=== PATIENT | male | born 1945 | race Caucasian/White ===

== ENCOUNTER 2023-06-09 11:41 | Inpatient (IN) ==
[2023-06-09] MEDS ORDERED: OPTIRAY 320 500ml IV ONE (13:02)
[2023-06-09 13:16] LABS: Basophils # (auto) 0.06 K/uL (0.00-0.20); Basophils % (auto) 0.9 %; Eosinophils # (auto) 0.02 K/uL (0.00-0.50); Eosinophils % (auto) 0.3 %; Hematocrit (blood only) 34.5 % (42.0-52.0); Hemoglobin 11.6 g/dl (14.0-18.0); Immature Granulocytes # (auto) 0.04 K/uL (0.01-0.20); Immature Granulocytes % (auto) 0.6 %; Lymphocytes # (auto) 0.36 K/uL (1.20-3.40); Lymphocytes % (auto) 5.1 %; Mean Corpuscular Hemoglobin 31.1 pg (25.0-34.0); Mean Corpuscular Hgb Conc 33.6 g/dL (32.0-36.0); Mean Corpuscular Volume 92.5 fL (80.0-100.0); Mean Platelet Volume 8.3 fL (9.4-12.4); Monocytes # (auto) 0.71 K/uL (0.11-0.59); Monocytes % (auto) 10.1 %; Neutrophils # (auto) 5.81 K/uL (1.40-6.50); Platelet Count 338 K/uL (130-400); RDW Coefficient of Variation 12.9 % (11.5-14.5); RDW Standard Deviation 43.4 fL (36.4-46.3); Red Blood Count 3.73 M/uL (4.70-6.10)
[2023-06-09 13:21] LABS: Alanine Aminotransferase 18 U/L (7-52); Albumin Level 3.4 gm/dl (3.4-5.0); Alkaline Phosphatase 129 U/L (34-104); Anion Gap 7 (3-11); Aspartate Aminotransferase 13 U/L (13-39); BUN Creatinine Ratio 22.6 (10-20); Bilirubin Direct 0.3 mg/dl (0-0.2); Bilirubin,Total 1.1 mg/dl (0.2-1.0); Blood Urea Nitrogen 12 mg/dl (6-23); Calcium 8.7 mg/dl (8.6-10.3); Carbon Dioxide 26 mmol/L (21-32); Chloride 97 mmol/L (98-107); Est GFR (African American) 118.3 ml/min; Est GFR (Non-African American) 102.1 ml/min; Glucose 122 mg/dl (70-99(Fasting)); Lipase 8 U/L (11-82); Potassium 3.5 mmol/L (3.5-5.1); Sodium 130 mmol/L (136-145)
[2023-06-09 13:28] LABS: INR 1.1 (0.9-1.1); Partial Thromboplastin Ratio 0.8; Partial Thromboplastin Time 23 Seconds (21-31); Prothrombin Time 12.4 Seconds (9.0-12.0)
--- NOTE | 2023-06-09 13:42 | CT Scan Report ---
CT SCAN OF THE ABDOMEN AND PELVIS WITH IV CONTRAST CLINICAL HISTORY: Left inguinal hernia. COMPARISON STUDY: No priors. TECHNIQUE: Following the IV administration of 88 cc of Optiray 320, CT scan of the abdomen and pelvi s is performed from the lung bases to the proximal femora. Images are reviewed in the axial, sagittal , and coronal planes. IV contrast was administered without complication. A dose lowering technique wa s utilized adhering to the principles of ALARA. CT DOSE: 945.17 mGy.cm FINDINGS: Lung bases: The heart is enlarged noting a small pericardial effusion. The coronary arteries are dens [place] calcified. There are small pleural effusions with dependent consolidation. Intralobular septal th ickening at both lung bases could represent acute versus chronic congestive change. Liver: The contrast-enhanced liver is cirrhotic in morphology and heterogeneous in attenuation. There is hypertrophy of the left lobe and nodularity of the hepatic surface contour. There is no intrahepa tic biliary ductal dilatation. The hepatic veins and portal veins are patent. There is a 9 mm right l obe cyst. Gallbladder: There is nonspecific gallbladder wall thickening and edema without clear CT evidence of acute cholecystitis. Spleen: Normal in size and attenuation. Pancreas: The pancreas is mildly atrophic and heterogeneous. Extensive parenchymal calcifications ind icate chronic pancreatitis. The pancreatic duct is significantly dilated, measuring up to [address] This is likely related to intraductal calculi near the ampulla. Adrenal glands: There is nonspecific thickening of the adrenal glands. Kidneys: The contrast enhanced kidneys are normal in size and without hydronephrosis. The kidneys enh ance symmetrically. Scattered cysts measure up to 1.9 cm. Abdominal vasculature: The abdominal aorta is normal in course and caliber noting moderate atheroscle rotic calcification. Bowel: There is postsurgical change from rectosigmoid resection with colocolonic anastomosis. Moderat e to severe fecal retention is noted throughout the colon. A small bowel anastomosis is seen in the r ight midabdomen. There is focal dilatation and fecalization at the anastomotic site seen on image #[id number]. There is no evidence of bowel obstruction. The appendix is well-visualized and normal. Peritoneum: There is a small to moderate volume of abdominopelvic ascites. No intraperitoneal free ai r is identified. There is a fat-containing umbilical hernia. A defect in the right lower quadrant abd ominal wall is likely related to a prior ostomy site. Lymphadenopathy: None. Pelvic viscera: The prostate gland is enlarged and heterogeneous. The bladder wall is thickened/trabe culated indicating chronic outlet obstruction. There is a large left inguinal hernia. This contains a large thick walled and peripherally enhancing fluid collection. This measures approximately 13 x 5 x 5 cm as seen on axial image #350. Although loops of small bowel closely approximate this collection at the inguinal ring, incarcerated bowel loop is considered less likely. There is diffuse scrotal wal l thickening and edema as well as a left-sided hydrocele. Skeletal structures: The skeletal structures are osteopenic. Mild to moderate lumbosacral spondylosis is observed. No lytic or blastic lesions are seen. There are chronic/healed bilateral rib fractures. There is chronic deformity of the right transverse process of L3. IMPRESSION: 1. There is a large left inguinal hernia which contains a large, thick-walled, and peripherally enhan cing fluid collection. Although loops of small bowel closely approximates this collection at the ingu inal ring, this does not appear to represent an incarcerated bowel loop and there is no evidence of u pstream bowel obstruction. An infected fluid collection/abscess is favored. A rind of neoplasm/metast atic disease within the inguinal canal is a differential consideration. An incarcerated bowel loop is considered much less likely but not entirely excluded. Surgical assessment is advised. 2. There is postsurgical change from rectosigmoid resection. No bowel obstruction is seen. Focal dila tation and fecalization at a small bowel anastomosis in the right mid abdomen is likely related to de nervation. 3. [id number] volume of abdominopelvic ascites. 4. The liver is cirrhotic in morphology and heterogeneous in attenuation. 5. There is evidence of chronic pancreatitis. The pancreatic duct is significantly dilated measuring up to 11 mm, and this is likely related to intraductal calculi at the ampulla. There is no CT evidenc e of obstructing mass lesion. GI follow-up is recommended. 6. Cardiomegaly. Interlobular septal thickening at the lung bases could represent acute versus chroni c congestive change. Clinical correlation will be required. 7. Small pleural effusions with dependent consolidation. This likely represents atelectasis. Correlat e clinically. 8. There is nonspecific gallbladder wall thickening and edema, likely related to ascites and adjacent hepatocellular disease. There is no convincing CT evidence of acute cholecystitis. Correlate clinica lly. 9. Moderate to severe constipation. 10. There is scrotal wall thickening and edema as well as a left-sided hydrocele. No perineal soft ti ssue gas is seen. 11. Additional findings as above. ACT 112: Negative or not required by law. Electronically signed by: Tao Verdugo M.D. 06/09/2023 1:40 PM
--- NOTE | 2023-06-09 15:30 | Surgery Consultation ---
Date of Consultation June 09, 2023 Assessment & Plan (1) Left inguinal hernia: fluid filled collection in left groin likely post-op collection with surrounding erythema potential abscess WBC normal and no fevers recommended US guided drainage by IR will need inguinal hernia repair eventually so would not recommend operation in this area acutely, IR drainage preferable History of Present Illness History of Present Illness This is a 78-year-old male who has recently been on anticoagulation for intermittent A-fib. He presents with a left groin swelling with tenderness. This has been present for over a month. He was brought in by his son for evaluation. The pain he says is steady but has not worsened recently. He denies any bowel habit changes. He does have some difficulty urinating. He denies any fevers, chills, nausea, or vomiting. He had a CT in the ED which shows a fluid-filled collection in his left groin. This is associated with a left inguinal hernia also. He has a past surgical history significant for colon resection with a diverting ileostomy. The diverting ileostomy was taken down in April and the swelling in his groin started soon after that. Allergies Allergy/AdvReac Type Severity Reaction Status Date / Time No Known Allergies Allergy Unverified 06/09/23 15:05 Home Medications Medication Instructions Recorded Confirmed Type diltiazem HCl 120 mg 120 mg PO QAM 06/09/23 06/09/23 History tablet,extended release 24 hr Patient History Social History Smoking Status: Never smoker Preferred Language: Croatian Feels Safe at Home: Yes Review of Systems Constitutional: no fever, no chills and no anorexia Eyes: no problem reported Ear, Nose, Mouth, Throat: + problem reported (recent fall with a h ematoma of his left forehead) Respiratory: no cough and no dyspnea Cardiovascular: no chest pain Gastrointestinal: no abdominal pain, no nausea, no vomiting and no change in bowel habits Genitourinary: + difficulty urinating and + scrotal swe lling; no dysuria Musculoskeletal: no back pain Integumentary: + erythema (left groin); no problem repo rted Neurologic: no localized weakness and no generalized weakness Psychiatric: no behavioral changes Hematologic / Lymphatic: + easy bleeding and + easy bruising Physical Exam Constitutional: well developed and well nourished Eyes: PERRL, conjunctivae normal, anicteric sclerae ENMT: external ear and nose normal, oropharynx normal Neck: trachea midline Respiratory: normal respiratory effort, lungs clear to auscultation Cardiovascular: Rate/Rhythm: regular rate and regular rhythm Gastrointestinal (Abdomen): Inspection/Auscultation: abdomen normal to inspection, normal bowel sounds and + abdominal surgical scar; abdomen not distended Percussion/Palpation: abdomen soft; abdomen nontender, no guarding and abdomen not rigid Musculoskeletal: Head/Neck/Chest: + head abnormal to inspection (left forehead hematoma) and normocephalic Skin: no rashes, warm and dry Results & Data Vital Signs (Past 12 Hours) Vital Signs Temp Pulse Pulse Resp BP BP Pulse Ox 06/09/23 14:30 86 14 92 06/09/23 14:00 89 19 98 06/09/23 13:44 93 H 06/09/23 13:41 90 136/98 93 06/09/23 12:28 96 H 18 96 06/09/23 12:07 36.6 C 112 H 18 114/82 100 O2 Del Method 06/09/23 14:30 06/09/23 14:00 06/09/23 13:44 06/09/23 13:41 Room Air 06/09/23 12:28 Room Air 06/09/23 12:07 Room Air Diagnostic Findings CT SCAN OF THE ABDOMEN AND PELVIS WITH IV CONTRAST CLINICAL HISTORY: Left inguinal hernia. COMPARISON STUDY: No priors. TECHNIQUE: Following the IV administration of 88 cc of Optiray 320, CT scan of the abdomen and pelvis is performed from the lung bases to the proximal femora. Images are reviewed in the axial, sagittal, and coronal planes. IV contrast was administered without complication. A dose lowering technique was utilized adhering to the principles of ALARA. CT DOSE: 945.17 mGy.cm FINDINGS: Lung bases: The heart is enlarged noting a small pericardial effusion. The coronary arteries are densely calcified. There are small pleural effusions with dependent consolidation. Intralobular septal thickening at both lung bases could represent acute versus chronic congestive change. Liver: The contrast-enhanced liver is cirrhotic in morphology and heterogeneous in attenuation. There is hypertrophy of the left lobe and nodularity of the hepatic surface contour. There is no intrahepatic biliary ductal dilatation. The hepatic veins and portal veins are patent. There is a 9 mm right lobe cyst. Gallbladder: There is nonspecific gallbladder wall thickening and edema without clear CT evidence of acute cholecystitis. Spleen: Normal in size and attenuation. Pancreas: The pancreas is mildly atrophic and heterogeneous. Extensive parenchymal calcifications indicate chronic pancreatitis. The pancreatic duct is significantly dilated, measuring up to 11 mm diameter. This is likely related to intraductal calculi near the ampulla. Adrenal glands: There is nonspecific thickening of the adrenal glands. Kidneys: The contrast enhanced kidneys are normal in size and without hydronephrosis. The kidneys enhance symmetrically. Scattered cysts measure up to 1.9 cm. Abdominal vasculature: The abdominal aorta is normal in course and caliber noting moderate atherosclerotic calcification. Bowel: There is postsurgical change from rectosigmoid resection with colocolonic anastomosis. Moderate to severe fecal retention is noted throughout the colon. A small bowel anastomosis is seen in the right midabdomen. There is focal dilatation and fecalization at the anastomotic site seen on image #169. There is no evidence of bowel obstruction. The appendix is well-visualized and normal. Peritoneum: There is a small to moderate volume of abdominopelvic ascites. No intraperitoneal free air is identified. There is a fat-containing umbilical hernia. A defect in the right lower quadrant abdominal wall is likely related to a prior ostomy site. Lymphadenopathy: None. Pelvic viscera: The prostate gland is enlarged and heterogeneous. The bladder wall is thickened/trabeculated indicating chronic outlet obstruction. There is a large left inguinal hernia. This contains a large thick walled and peripherally enhancing fluid collection. This measures approximately 13 x 5 x 5 cm as seen on axial image #350. Although loops of small bowel closely approximate this collection at the inguinal ring, incarcerated bowel loop is considered less likely. There is diffuse scrotal wall thickening and edema as well as a left-sided hydrocele. Skeletal structures: The skeletal structures are osteopenic. Mild to moderate lumbosacral spondylosis is observed. No lytic or blastic lesions are seen. There are chronic/healed bilateral rib fractures. There is chronic deformity of the right transverse process of L3. IMPRESSION: 1. There is a large left inguinal hernia which contains a large, thick-walled, and peripherally enhancing fluid collection. Although loops of small bowel closely approximates this collection at the inguinal ring, this does not appear to represent an incarcerated bowel loop and there is no evidence of upstream bowel obstruction. An infected fluid collection/abscess is favored. A rind of neoplasm/metastatic disease within the inguinal canal is a differential consideration. An incarcerated bowel loop is considered much less likely but not entirely excluded. Surgical assessment is advised. 2. There is postsurgical change from rectosigmoid resection. No bowel obstruction is seen. Focal dilatation and fecalization at a small bowel anastomosis in the right mid abdomen is likely related to denervation. 3. [place]au[place] volume of abdominopelvic ascites. 4. The liver is cirrhotic in morphology and heterogeneous in attenuation. 5. There is evidence of chronic pancreatitis. The pancreatic duct is significantly dilated measuring up to 11 mm, and this is likely related to intraductal calculi at the ampulla. There is no CT evidence of obstructing mass lesion. GI follow-up is recommended. 6. Cardiomegaly. Interlobular septal thickening at the lung bases could represent acute versus chronic congestive change. Clinical correlation will be required. 7. Small pleural effusions with dependent consolidation. This likely represents atelectasis. Correlate clinically. 8. There is nonspecific gallbladder wall thickening and edema, likely related to ascites and adjacent hepatocellular disease. There is no convincing CT evidence of acute cholecystitis. Correlate clinically. 9. Moderate to severe constipation. 10. There is scrotal wall thickening and edema as well as a left-sided hydrocele. No perineal soft tissue gas is seen.
[2023-06-09] MEDS ORDERED: PIPERACILLIN/TAZOBACTAM 4.5 GM/120 ML BAG IV ONE (16:03)
--- NOTE | 2023-06-09 16:39 | History & Physical Report ---
Date of Service June 09, 2023 Assessment & Plan (1) Abscess of left groin: Plan: Abscess Left inguinal abscess suspicious for abscess CT shows collection at the inguinal ring but without suspected incarcerated bowel loop with no associated obstruction, infected fluid collection is favored. Surgery consulted. Recommend IR drainage, antibiotics and then nonemergent follow-up for hernia repair when stable. Not felt to represent incarcerated hernia. IR consulted, anticipate drainage on surgical cultures 2/2. Continue Zosyn Patient is nontoxic, (2) Chronic pancreatitis: Plan: Evidence of chronic pancreatitis Pancreatic ductal dilation suspected due to intraductal calculi. No evidence of obstructing mass noted on CT. No evidence of acute cholecystitis on CT however there is some nonspecific gallbladder wall thickening and edema suspect to be related to ascites and hepatocellular disease. No lipase elevation Clinically without pain. No leukocytosis. Bilirubin 0.3 no transaminitis. Lipase is 8, no acute elevated. No acute alan. GI consulted. (3) Left inguinal hernia: Plan: - Delay repair until abscess/infection is adequately treated and resolved (4) Afib: Plan: History of 1 cardioversion with subsequent return to A-fib after several months Was previously anticoagulated however this was stopped due to history of GI bleeding Patient is pending follow-up with [facility] cardiology for further care. Patient prefers to avoid medications and anticoagulation if possible Patient was previously on metoprolol for A-fib and had some leg swelling at the time before he was rate controlled. Denies any history of CHF/NM. He stopped this due to lightheadedness on these medications, this was prior to his cardioversion. After return to A-fib he was started on diltiazem but had significant leg swelling with this which immediately resolved when he stopped taking it. Will restart metoprolol low-dose at this time for rate control. He is in A-fib on admission with no ischemic changes. Echo ordered for history of A-fib with RVR and leg swelling, leg swelling has resolved at time of admission Anticoagulation held pending surgical management/IR drainage. He has a [id number] of at least 2 and while he had initial GI bleeding this was in the setting of a untreated colon cancer which has since resolved. Patient is with increased risk of bleeding Cardiology records pending from [facility] (he was seen at [facility] for cardiology, [facility] for his colon cancer) (5) History of colon cancer: Plan: Resected at [facility], no metastatic or residual disease and has not required chemo or radiation. Ileostomy was reversed at this past April Records pending from [facility] Plan DVT prophylaxis: SCDs Diet: N.p.o. Disposition: Medical telemetry given history of A-fib RVR not currently on rate control CODE STATUS: Full History of Present Illness Primary Care Provider: NO PCP Mal is a 78-year-old male with a history of A-fib on anticoagulation who presents with 1 month of left groin swelling and tenderness which has been unchanging in the last few days. CT shows fluid-filled left groin collection and associated left inguinal hernia. Patient has a history of colon resection and diverting ileostomy which was reversed in April, swelling started shortly after this. CTA/P: Large left inguinal hernia with large thick-walled peripherally enhancing fluid collection. Loops of bowel closely approximates this collection at the inguinal ring but this does not appear to represent incarcerated bowel and is not associated with an obstruction. Infected fluid collection/abscess favored neoplasm not excluded. Patient seen by general surgery. Suspect postop fluid collection potential abscess. Recommend ultrasound-guided drainage with interventional radiology, will need eventual inguinal hernia repair however recommend drainage and antibiotic treatment prior to pursuing this Mal is seen at the bedside and collateral is collected from his son Schuyler by andrew wilcox. Came in today due to groin swelling which began in April and is causing pain. Has had a chronic hernia in that area, but swelling increased 3 weeks ago and pain began to develop 3 weeks ago. Has been relatively constant until the past week/few days when it increased which prompted him to come into the ER In December he had a colon cancer rescection with ileostomy. Apr 22 had ileostomy reversed and was uncomplicated, but swelling did worsen shortly after that. Hernia preceded that and was known. Had delayed repair as was focusing on th emanagement of cancer. Surgeyr was performed at [facility] cardiology. Was cardioverted once two years ago / Apr 2022 but afib recurred after a few months. Had associated leg swelling. No history of NM. Was on eliquis but had a GIB/rectal bleed which led to the dx of his colon cancer. Was recommended to discontinue anticoagulation. Is pending followup for potential ablation/cardioversion and will be seeing Dr. Geronimo to establish here in the next few months. No PCP in [facility] because that PCP stopped practicing and never transferred care. Appointment on Tuesday to establish with [facility]/Dr. Ramirez office. During ileostomy reversal did have some RVR and hypertension which was noted and he was started on cardizem. Shortly after developed leg edema again which had not been present for over a year and had stopped taking this a few days ago and noticed that the swelling completely resolved after this was stopped. Son thinks Mal may have been on metoprolol over a year ago with lasix but had some dizziness and a fall when this was combined wtih lasix and discontinued this cold turkey. Son lives in [place]. Mal moved to [facility] with his son temporarily. Only current prescription is cardizem which he is not taking. Takes no medic ations and prefers to avoid medications. Takes multiple vitamins and supplements Medical History: Reviewed Medications: Reviewed Surgical History: Reviewed Family history: Reviewed Allergies: Reviewed Social History: Denies tobacco/etoh use Code Status: Full Code Allergies Allergy/AdvReac Type Severity Reaction Status Date / Time No Known Allergies Allergy Unverified 06/09/23 15:05 Home Medications Medication Instructions Recorded Confirmed Type diltiazem HCl 120 mg 120 mg PO QAM 06/09/23 06/09/23 History tablet,extended release 24 hr Past Med/Surg History Social History Smoking Status: Never smoker Preferred Language: Japanese Feels Safe at Home: Yes Physical Exam Physical Exam: General: A&Ox3. NAD. Cooperative. HEENT: Atraumatic, normocephalic. Vision/hearing intact Pulm: CTAB A&P. -wheezes, -rales, -rhonchi. Symmetrical chest rise. No increased work of breathing. No respiratory distress. Cardiac: irir, regular rate, -mrg. Radial pulses intact and symmetrical. Abdominal: Nontender, nondistended, soft. BS present. : Left inguinal swelling, tenderness, and overlying erythema. Extremities: Warm, dry. No pitting edema Results & Data Results & Data Vital Signs (Past 12 Hours) Vital Signs Temp Pulse Pulse Resp BP BP Pulse Ox 06/09/23 14:30 86 14 92 06/09/23 14:00 89 19 98 06/09/23 13:44 93 H 06/09/23 13:41 90 136/98 93 06/09/23 12:28 96 H 18 96 06/09/23 12:07 36.6 C 112 H 18 114/82 100 O2 Del Method 06/09/23 14:30 06/09/23 14:00 06/09/23 13:44 06/09/23 13:41 Room Air 06/09/23 12:28 Room Air 06/09/23 12:07 Room Air PG Care Time/CCT Total # of Minutes Spent Total Time Spent with Patient: Total time spent is greater than 50% in coordination of care (as documented) at patient's floor/unit and/or counseling patient: Coding Level of Care Code 67682 INT INP/OBS CARE 375MIN Diagnoses Abscess of left groin L02.214 Chronic pancreatitis K86.1 Left inguinal hernia K40.90 Afib I48.91 History of colon cancer Z85.038
[2023-06-09] MEDS ORDERED: ACETAMINOPHEN 325 MG TAB PO PRN (19:15)
[2023-06-09] MEDS ORDERED: Patient's HEIGHT &/or WEIGHT Needed SCH (19:30)
[2023-06-09] MEDS: METOPROLOL TARTRATE 25 MG TAB PO SCH (20:32)
[2023-06-09] MEDS: LACTATED RINGER'S 1,000 ML IV SCH (20:33)
--- NOTE | 2023-06-09 20:44 | Emergency Department Note ---
History of Present Illness General Chief complaint: Groin Pain Stated complaint: GROIN PAIN Time Seen by Provider: 06/09/23 12:15 Source: patient and family (Son at bedside) History of Present Illness Provider complaint: Left groin pain Maximum Pain Intensity: 8 78-year-old male presents emergency department with some for left groin pain. Patient's son reports that the patient has noted mass in his groin for the last 3 months that he describes as a bulge. He states is becoming painful over the last month. Son reports that patient is usually able to push back and but over the last 2 weeks he has not been able to push it back in. No fevers. Patient has a history of colon cancer and has a history of colectomy with ileostomy, ileostomy was reversed in [place] in April. Patient not on any blood thinners. Home Medications Medication Instructions Recorded Confirmed Type diltiazem HCl 120 mg 120 mg PO QAM 06/09/23 06/09/23 History tablet,extended release 24 hr Allergies Allergy/AdvReac Type Severity Reaction Status Date / Time No Known Allergies Allergy Unverified 06/09/23 15:05 Past Med/Surg History Medical History History of colon cancer Afib Surgical History H/O colectomy Social History Smoking Status: Never smoker Hx Alcohol Use: No Hx Substance Use: No Preferred Language: Lao Communication Ability: Effective Medical Dosimetrist Required: No Beliefs That Will Affect Care: None Current Living Situation: Alone Other Information That Helps Us Care for You: No Feels Safe at Home: Yes Safety Concerns: Feels Safe At This Time Assistive Devices: None Physical Exam Vital Signs Vital Signs - 24 hr 06/09/23 12:07 06/09/23 12:28 06/09/23 13:41 Temperature 36.6 C Temperature Source Temporal Artery Scan Pulse Rate 112 H 96 H Pulse Rate [Apical] 90 Pulse Rate from SpO2 Sensor Pulse Rhythm Regular Respiratory Rate 18 18 Respiratory Effort / Characteristics Non-Labored Spontaneous Respiratory Depth Normal Respiratory Pattern Regular Blood Pressure 114/82 Blood Pressure [Right Arm] 136/98 Blood Pressure Mean 92 Blood Pressure Mean [Right Arm] 110 Blood Pressure Position Sitting Pulse Oximetry 100 96 93 Oxygen Delivery Method Room Air Room Air Room Air Sepsis Recent Fever Within 48 Hours No Sepsis New/Unexplained Change in Mental Status N/A Sepsis Action Taken by Nursing No Action Required 06/09/23 13:44 06/09/23 14:00 06/09/23 14:30 Temperature Temperature Source Pulse Rate 93 H 89 86 Pulse Rate [Apical] Pulse Rate from SpO2 Sensor 94 H 94 H Pulse Rhythm Respiratory Rate 19 14 Respiratory Effort / Characteristics Respiratory Depth Respiratory Pattern Blood Pressure Blood Pressure [Right Arm] Blood Pressure Mean Blood Pressure Mean [Right Arm] Blood Pressure Position Pulse Oximetry 98 92 Oxygen Delivery Method Sepsis Recent Fever Within 48 Hours Sepsis New/Unexplained Change in Mental Status Sepsis Action Taken by Nursing 06/09/23 16:39 06/09/23 16:43 06/09/23 17:00 Temperature Temperature Source Pulse Rate 103 H 91 H Pulse Rate [Apical] Pulse Rate from SpO2 Sensor 99 H 84 Pulse Rhythm Respiratory Rate 22 19 Respiratory Effort / Characteristics Respiratory Depth Respiratory Pattern Blood Pressure 154/102 H Blood Pressure [Right Arm] Blood Pressure Mean 119 Blood Pressure Mean [Right Arm] Blood Pressure Position Pulse Oximetry 95 96 Oxygen Delivery Method Sepsis Recent Fever Within 48 Hours Sepsis New/Unexplained Change in Mental Status Sepsis Action Taken by Nursing Physical Exam GENERAL: oriented to person, place, and time. appears well-developed and well- nourished. HENT: Exam performed. - Head: Normocephalic and atraumatic. EYES: Conjunctivae and EOM are normal. Right eye exhibits no discharge. Left eye exhibits no discharge. No scleral icterus. NECK: Normal range of motion. Neck supple. No JVD present. CV: Normal rate, irregular rhythm, normal heart sounds and intact distal pulses. There is no peripheral edema. Palpable radial pulses bue. PULM/CHEST: Effort normal and breath sounds normal. No respiratory distress. No stridor. no wheezes. no rales. ABD: The abdomen is soft. There is a large mass in the patient's left inguinal area extending into his scrotum appears clinically as an inguinal hernia. There is no overlying erythema or redness no warmth. NEURO: Motor and sensation grossly intact. Course Course 1215: The patient was evaluated in room C6. A complete history and physical exam was performed Cardiac monitoring: An order was placed for continuous cardiac monitoring. The monitor shows a rate of 60 with afib rhythm interpreted by me 1358: Vital signs stable. Labs within normal limits. Imaging shows a fluid collection/abscess versus neoplasm/metastatic disease versus incarcerated bowel loop although the incarcerated bowel loop is considered less likely based radiology. Recommended general surgery consult. Spoke with Dr. Carvalho who states he will be down to evaluate the patient. 1525: Patient was evaluated Dr. Carvalho. He states he does not think the patient has incarcerated hernia does not recommend an operative procedure at this time. He recommends consulting IR for drainage and start broad-spectrum antibiotics and admission to the hospital seen. 1548: Spoke with Mookie Graves interventional radiology he states he can assess the patient for drainage tomorrow and agrees to be on consult with admission to medicine. [facility] Administered Medications Discontinued Medications Piperacillin Sod/Tazobactam Sod (Zosyn) 4.5 gm in 120 mls @ 240 mls/hr IV NOW ONE Stop: 06/09/23 16:32 Last Infusion: 06/09/23 17:18 Dose: Infused Documented By: Admin: 06/09/23 16:41 Dose: 240 mls/hr Documented By: KAYLEEN Ioversol (Optiray 320 500ml) 86 ml IV ONCE ONE Stop: 06/09/23 13:03 Last Admin: 06/09/23 13:02 Dose: 86 ml Documented By: CHRISTINA Medical Decision Making Laboratory Data Attestation: I reviewed the patient's lab results. 06/09/23 12:30 06/09/23 12:30 Lab Results 06/09/23 Range/Units 12:30 WBC 7.00 (4.8-10.8) K/ul RBC 3.73 L (4.70-6.10) M/uL Hgb 11.6 L (14.0-18.0) g/dl Hct 34.5 L (42.0-52.0) % MCV 92.5 (80.0-100.0) fL MCH 31.1 (25.0-34.0) pg MCHC 33.6 (32.0-36.0) g/dL RDW Std Deviation 43.4 (36.4-46.3) fL RDW Coeff of Chacho 12.9 (11.5-14.5) % Plt Count 338 (130-400) K/uL MPV 8.3 L (9.4-12.4) fL Immature Gran % (Auto) 0.6 % Neut % (Auto) 83.0 % Lymph % (Auto) 5.1 % Gove % (Auto) 10.1 % Eos % (Auto) 0.3 % Baso % (Auto) 0.9 % Neut # (Auto) 5.81 (1.40-6.50) K/uL Lymph # (Auto) 0.36 L (1.20-3.40) K/uL Gove # (Auto) 0.71 H (0.11-0.59) K/uL Eos # (Auto) 0.02 (0.00-0.50) K/uL Baso # (Auto) 0.06 (0.00-0.20) K/uL Immature Gran # (Auto) 0.04 (0.01-0.20) K/uL PT 12.4 H (9.0-12.0) Seconds INR 1.1 (0.9-1.1) APTT 23 (21-31) Seconds PTT Ratio 0.8 Sodium 130 L (136-145) mmol/L Potassium 3.5 (3.5-5.1) mmol/L Chloride 97 L (98-107) mmol/L Carbon Dioxide 26 (21-32) mmol/L Anion Gap 7 (3-11) BUN 12 (6-23) mg/dl Creatinine 0.53 L (0.6-1.4) mg/dl Est Cr Clr Drug Dosing Not Reportable Est GFR ( Amer) 118.3 ml/min Est GFR (Non-Af Amer) 102.1 ml/min BUN/Creatinine Ratio 22.6 H (10-20) Glucose 122 H (70-99(Fasting)) mg/dl Calcium 8.7 (8.6-10.3) mg/dl Total Bilirubin 1.1 H (0.2-1.0) mg/dl Direct Bilirubin 0.3 H (0-0.2) mg/dl AST 13 (13-39) U/L ALT 18 (7-52) U/L Alkaline Phosphatase 129 H (34-104) U/L Total Protein 6.0 (6.0-8.3) gm/dl Albumin 3.4 (3.4-5.0) gm/dl Lipase 8 L (11-82) U/L Imaging Data Radiologist's Impression: Abdomen/Pelvis CT 06/09/23 12:28 CT SCAN OF THE ABDOMEN AND PELVIS WITH IV CONTRAST CLINICAL HISTORY: Left inguinal hernia. COMPARISON STUDY: No priors. TECHNIQUE: Following the IV administration of 88 cc of Optiray 320, CT scan of the abdomen and pelvis is performed from the lung bases to the proximal femora. Images are reviewed in the axial, sagittal, and coronal planes. IV contrast was administered without complication. A dose lowering technique was utilized adhering to the principles of ALARA. CT DOSE: 945.17 mGy.cm FINDINGS: Lung bases: The heart is enlarged noting a small pericardial effusion. The coronary arteries are densely calcified. There are small pleural effusions with dependent consolidation. Intralobular septal thickening at both lung bases could represent acute versus chronic congestive change. Liver: The contrast-enhanced liver is cirrhotic in morphology and heterogeneous in attenuation. There is hypertrophy of the left lobe and nodularity of the hepatic surface contour. There is no intrahepatic biliary ductal dilatation. The hepatic veins and portal veins are patent. There is a 9 mm right lobe cyst. Gallbladder: There is nonspecific gallbladder wall thickening and edema without clear CT evidence of acute cholecystitis. Spleen: Normal in size and attenuation. Pancreas: The pancreas is mildly atrophic and heterogeneous. Extensive parenchymal calcifications indicate chronic pancreatitis. The pancreatic duct is significantly dilated, measuring up to 11 mm diameter. This is likely related to intraductal calculi near the ampulla. Adrenal glands: There is nonspecific thickening of the adrenal glands. Kidneys: The contrast enhanced kidneys are normal in size and without hydronephrosis. The kidneys enhance symmetrically. Scattered cysts measure up to 1.9 cm. Abdominal vasculature: The abdominal aorta is normal in course and caliber noting moderate atherosclerotic calcification. Bowel: There is postsurgical change from rectosigmoid resection with colocolonic anastomosis. Moderate to severe fecal retention is noted throughout the colon. A small bowel anastomosis is seen in the right midabdomen. There is focal dilatation and fecalization at the anastomotic site seen on image #169. There is no evidence of bowel obstruction. The appendix is well-visualized and normal. Peritoneum: There is a small to moderate volume of abdominopelvic ascites. No intraperitoneal free air is identified. There is a fat-containing umbilical hernia. A defect in the right lower quadrant abdominal wall is likely related to a prior ostomy site. Lymphadenopathy: None. Pelvic viscera: The prostate gland is enlarged and heterogeneous. The bladder wall is thickened/trabeculated indicating chronic outlet obstruction. There is a large left inguinal hernia. This contains a large thick walled and peripherally enhancing fluid collection. This measures approximately 13 x 5 x 5 cm as seen on axial image #350. Although loops of small bowel closely approximate this collection at the inguinal ring, incarcerated bowel loop is considered less likely. There is diffuse scrotal wall thickening and edema as well as a left- sided hydrocele. Skeletal structures: The skeletal structures are osteopenic. Mild to moderate lumbosacral spondylosis is observed. No lytic or blastic lesions are seen. There are chronic/healed bilateral rib fractures. There is chronic deformity of the right transverse process of L3. IMPRESSION: 1. There is a large left inguinal hernia which contains a large, thick-walled, and peripherally enhancing fluid collection. Although loops of small bowel closely approximates this collection at the inguinal ring, this does not appear to represent an incarcerated bowel loop and there is no evidence of upstream bowel obstruction. An infected fluid collection/abscess is favored. A rind of neoplasm/metastatic disease within the inguinal canal is a differential consideration. An incarcerated bowel loop is considered much less likely but not entirely excluded. Surgical assessment is advised. 2. There is postsurgical change from rectosigmoid resection. No bowel obstruction is seen. Focal dilatation and fecalization at a small bowel anastomosis in the right mid abdomen is likely related to denervation. 3. Gnlna-kj-prjzqede volume of abdominopelvic ascites. 4. The liver is cirrhotic in morphology and heterogeneous in attenuation. 5. There is evidence of chronic pancreatitis. The pancreatic duct is significantly dilated measuring up to 11 mm, and this is likely related to intraductal calculi at the ampulla. There is no CT evidence of obstructing mass lesion. GI follow-up is recommended. 6. Cardiomegaly. Interlobular septal thickening at the lung bases could represent acute versus chronic congestive change. Clinical correlation will be required. 7. Small pleural effusions with dependent consolidation. This likely represents atelectasis. Correlate clinically. 8. There is nonspecific gallbladder wall thickening and edema, likely related to ascites and adjacent hepatocellular disease. There is no convincing CT evidence of acute cholecystitis. Correlate clinically. 9. Moderate to severe constipation. 10. There is scrotal wall thickening and edema as well as a left-sided hydrocele. No perineal soft tissue gas is seen. 11. Additional findings as above. ACT 112: Negative or not required by law. Electronically signed by: Tao Verdugo M.D. 06/09/2023 1:40 PM [facility] Narrative 1215: The patient was evaluated in room C6. A complete history and physical exam was performed Cardiac monitoring: An order was placed for continuous cardiac monitoring. The monitor shows a rate of 60 with afib rhythm interpreted by tx 1358: Vital signs stable. Labs within normal limits. Imaging shows a fluid collection/abscess versus neoplasm/metastatic disease versus incarcerated bowel loop although the incarcerated bowel loop is considered less likely based radiology. Recommended general surgery consult. Spoke with Dr. Carvalho who states he will be down to evaluate the patient. 1525: Patient was evaluated Dr. Carvalho. He states he does not think the patient has incarcerated hernia does not recommend an operative procedure at this time. He recommends consulting IR for drainage and start broad-spectrum antibiotics and admission to the hospital seen. 1548: Spoke with Mookie Graves interventional radiology he states he can assess the patient for drainage tomorrow and agrees to be on consult with admission to medicine. Patient be admitted to the [facility] care Impression & Plan Left inguinal hernia, Abscess of left groin Discharge Plan Visit Data Chief Complaint: Groin Pain Stated Complaint: GROIN PAIN ED Provider: Douglas Nuñez Discharge Problem: Left inguinal hernia, Abscess of left groin Patient Disposition: Admitted As Inpatient Discharge Instructions Interventions: ED Discharge Assessment Last Done: 06/09/23 18:04
[2023-06-09] MEDS: PIPERACILLIN/TAZOBACTAM 4.5 GM in DEXTROSE 5% MINI-B 100 ML IV SCH (22:57)
[2023-06-10 06:45] LABS: Basophils # (auto) 0.06 K/uL (0.00-0.20); Basophils % (auto) 0.8 %; Eosinophils # (auto) 0.09 K/uL (0.00-0.50); Eosinophils % (auto) 1.2 %; Hemoglobin 11.1 g/dl (14.0-18.0); Immature Granulocytes # (auto) 0.06 K/uL (0.01-0.20); Immature Granulocytes % (auto) 0.8 %; Lymphocytes # (auto) 0.47 K/uL (1.20-3.40); Lymphocytes % (auto) 6.5 %; Mean Corpuscular Hemoglobin 30.5 pg (25.0-34.0); Mean Corpuscular Hgb Conc 33.6 g/dL (32.0-36.0); Mean Corpuscular Volume 90.7 fL (80.0-100.0); Mean Platelet Volume 8.3 fL (9.4-12.4); Monocytes # (auto) 0.74 K/uL (0.11-0.59); Monocytes % (auto) 10.2 %; Neutrophils # (auto) 5.84 K/uL (1.40-6.50); Neutrophils % (auto) 80.5 %; Platelet Count 328 K/uL (130-400); RDW Coefficient of Variation 12.9 % (11.5-14.5); RDW Standard Deviation 42.6 fL (36.4-46.3); Red Blood Count 3.64 M/uL (4.70-6.10); White Blood Count 7.26 K/ul (4.8-10.8)
--- NOTE | 2023-06-10 07:03 | Hospitalist Progress Note ---
Date of Service June 10, 2023 Assessment & Plan (1) Abscess of left groin: Plan: Abscess Left inguinal abscess suspicious for abscess CT shows collection at the inguinal ring but without suspected incarcerated bowel loop with no associated obstruction, infected fluid collection is favored. Surgery consulted. Recommend IR drainage, antibiotics and then nonemergent follow-up for hernia repair when stable. Not felt to represent incarcerated hernia. IR drainage performed 2/2 -gram stain culture and cytology pending. Continue Zosyn discussed with patient would like to wait on cytology or culture first before discharge to determine need for antibiotics. If culture/cytology concerning for infection, can consider discharge on Augmentin 875mg BID 5 days total (2) Chronic pancreatitis: Plan: Evidence of chronic pancreatitis Pancreatic ductal dilation suspected due to intraductal calculi. No evidence of obstructing mass noted on CT. No evidence of acute cholecystitis on CT however there is some nonspecific gallbladder wall thickening and edema suspect to be related to ascites and hepatocellular disease. No lipase elevation Clinically without pain. No leukocytosis. Bilirubin 0.3 no transaminitis. Lipase is 8, no acute elevated. No acute alan. -recommend GI f/u in outpatient (3) Left inguinal hernia: Plan: - Delay repair until abscess/infection is adequately treated and resolved -will follow up with surgery on outpatient (4) Afib: Plan: History of 1 cardioversion with subsequent return to A-fib after several months Was previously anticoagulated, stopped due to history of GI bleeding with colon cancer, colon cancer since resected Patient is pending follow-up with [facility] cardiology for further care. Patient prefers to avoid medications and anticoagulation if possible previously on metoprolol for A-fib, stopped this due to lightheadedness on these medications. started on diltiazem, stopped due to leg swelling. -Will restart metoprolol low-dose at this time for rate control. -Echo ordered Anticoagulation held pending surgical management/IR drainage. Cardiology records pending from [facility] (he was seen at [facility] cardiology, [facility] for his colon cancer) (5) History of colon cancer: Plan: Resected at [facility], no metastatic or residual disease and has not required chemo or radiation. Ileostomy was reversed at this past April Records pending from [facility] (6) Cirrhosis of liver: Plan: CT A/P: The liver is cirrhotic in morphology and heterogeneous in attenuation. May require GI f/u in outpt for possible biopsy INR 1.1 Plan DVT prophylaxis: SCDs Diet: N.p.o. Disposition: Medical telemetry CODE STATUS: Full Admission and Anticipated Discharge Date Admission Date: June 09, 2023 Supervising Physician Co-Signing Physician Notes I personally examined the patient and verified all alvarado points of history and exam, discussed case, and agree with decision making with Dr Hurt feeling good has PCP appt set up tuesday pain much less has walked some but not a lot planning on moving [facility] permanently son has already set up much of his care team vitals noted nad heent nc at mmm breathing unlabored no accessory muscles good effort groin drain site c/d/i no erythema nontender inflamed seroma vs infection/abscess - WBC (+), no organisms on gram stain but also was done after abx, description of fluid more c/w seroma than abscess but also with pain - obligated to treat as infection -follow in to tomorrow, anticipate home on PO abx multitude of comorbidities - appearing stable, getting outpt care set up, but does not appear ongoing hospitalization for now Subjective 78yo Male seen at bedside, calm comfortable cooperative. Patient denies any nausea SOB CP abd pain, has fullness in right groin, understands he will be gett ing fluid drained from his possible abscess and that surgery has been consulted for his hernia. Patient denies seeing gastroenterology in the past, denies prior history of cirrhosis, denies rectal bleeding or easy bruising. At this time he is not on blood thinners. Patient states he slipped on the floor and hit his head on a door 3 weeks ago, was seen in a hospital in [place] who put a bandage on his injury, bandage was removed at [facility]. Physical Exam Constitutional: well developed and well nourished Eyes: PERRL, conjunctivae normal, anicteric sclerae ENMT: hematoma on left oriental orthodox, bruising noted under left eye Neck: trachea midline, no thyromegaly Respiratory: normal respiratory effort, lungs clear to auscultation Cardiovascular: Rate/Rhythm: + irregularly irregular Gastrointestinal (Abdomen): Inspection/Auscultation: abdomen normal to insp ection Percussion/Palpation: abdomen soft; abdomen nontender Skin: no rashes, warm and dry Genitourinary: Left groin swelling Results & Data Results & Data Vital Signs (Past 12 Hours) Vital Signs Temp Pulse Pulse Resp BP Pulse Ox O2 Del Method 06/10/23 02:45 36.6 C 106 H 18 134/92 98 Room Air 06/09/23 22:00 110 H 06/09/23 22:00 36.5 C 102 H 18 138/84 98 Room Air 06/09/23 19:15 113 H Resident Activity Tracking Resident Involvement: Resident Care Provided Care Provided: Adult Hospital Medicine
[2023-06-10 07:24] LABS: Albumin Globulin Ratio 1.4 (0.9-2); Calcium 8.6 mg/dl (8.6-10.3); Creatinine Clr Calc Pharmacy 123.7 ml/min; Est GFR (African American) 121.2 ml/min; Est GFR (Non-African American) 104.5 ml/min; Globulin 2.2 gm/dl (2.5-4.0); Magnesium 1.7 mg/dl (1.7-2.4); Potassium 3.6 mmol/L (3.5-5.1); Total Protein 5.2 gm/dl (6.0-8.3)
[2023-06-10] MEDS: PIPERACILLIN/TAZOBACTAM 4.5 GM in DEXTROSE 5% MINI-B 100 ML IV SCH ×2 (07:25→17:46)
[2023-06-10] MEDS ORDERED: fentaNYL citrate PF 100 MCG/2 ML VIAL ONE (09:11)
--- NOTE | 2023-06-10 09:51 | Surgery Progress Note ---
Date of Service June 10, 2023 Assessment & Plan (1) Abscess of left groin: Plan: seen in IR complex fluid collection with loculations drainage +/- drain will see in my clinic in 3 weeks Admission and Anticipated Discharge Date Admission Date: June 09, 2023 Subjective less pain no new complaints Review of Systems Constitutional: no fever and no chills Respiratory: no cough and no dyspnea Cardiovascular: no chest pain Gastrointestinal: no abdominal pain, no nausea, no vomiting and no change in bowel habits Genitourinary: + difficulty urinating Musculoskeletal: no back pain Neurologic: no localized weakness and no generalized weakness Physical Exam Constitutional: WD/WN, vitals as above Respiratory: normal respiratory effort, lungs clear to auscultation Cardiovascular: RRR, no murmur, no edema Gastrointestinal (Abdomen): normal bowel sounds, soft, nontender, no hepatosplenomegaly Musculoskeletal: Head/Neck/Chest: + head abnormal to inspection (hematoma) and normocephalic Skin: no rashes, warm and dry Genitourinary: complex fluid collection left groin Results & Data Vital Signs (Past 12 Hours) Vital Signs Temp Pulse Pulse Resp BP BP Pulse Ox 06/10/23 08:02 36.9 C 97 H 18 140/94 94 06/10/23 02:45 36.6 C 106 H 18 134/92 98 06/09/23 22:00 110 H 06/09/23 22:00 36.5 C 102 H 18 138/84 98 O2 Del Method 06/10/23 08:02 Room Air 06/10/23 02:45 Room Air 06/09/23 22:00 06/09/23 22:00 Room Air
[2023-06-10] MEDS: METOPROLOL TARTRATE 25 MG TAB PO SCH ×2 (11:13→20:57)
--- NOTE | 2023-06-10 12:40 | Ultrasound Report ---
ULTRASOUND-GUIDED LEFT GROIN FLUID COLLECTION ASPIRATION CLINICAL HISTORY: Fluid collection in the left groin/inguinal region. COMPARISON STUDY: CT abdomen and pelvis 06/09/2023 PROCEDURE: Procedure and risks were explained. Informed consent was obtained. A final timeout was com pleted. The left groin was prepped and draped in sterile fashion. 1% buffered lidocaine was utilized for skin anesthesia. Utilizing ultrasound guidance, an 18-gauge needle was advanced into the 5 cm left groin/inguinal jeramy l complex fluid collection. Ultrasound images were obtained. Approximately 85 mL of yellow serous flu id was aspirated and sent to lab for analysis. The needle was removed and Band-Aid applied. The patie nt tolerated the procedure well. IMPRESSION: Left groin/inguinal canal fluid collection aspiration as above. Performed, dictated, and signed by Roni Graves PA-C; to be co-signed by Dr. Tao Verdugo. Electronically signed by: Tao Verdugo M.D. 06/10/2023 12:56 PM
[2023-06-10 13:13] LABS: iSTAT Creatinine 0.4 mg/dl (0.6-1.3); iSTAT Hemoglobin 12.6 g/dl (14.0-18.0); iSTAT Ionized Calcium 1.1 mmol/l (1.12-1.32); iSTAT Potassium 3.6 mmol/L (3.3-5.0)
--- NOTE | 2023-06-10 16:06 | Billing Data ---
Date of Service June 10, 2023 Coding Level of Care Code 85048 SUB INP/OBS CARE
--- NOTE | 2023-06-10 16:10 | Billing Data ---
Date of Service June 10, 2023 Coding Level of Care Code 56177 SUB INP/OBS CARE
--- NOTE | 2023-06-10 20:57 | XCELERA ---
[id number] \\[id number]
[2023-06-10] MEDS: LACTATED RINGER'S 1,000 ML IV SCH ×2 (20:58→22:33)
[2023-06-10] MEDS ORDERED: Nursing to Pharmacy Communication SCH (22:45)
[2023-06-11] MEDS: PIPERACILLIN/TAZOBACTAM 4.5 GM in DEXTROSE 5% MINI-B 100 ML IV SCH ×2 (03:26→11:26)
--- NOTE | 2023-06-11 06:04 | Surgery Progress Note ---
Date of Service June 11, 2023 Assessment & Plan (1) Abscess of left groin: Plan: Patient is status post percutaneous drainage of left groin abscess on 06/10/2023 Gram stain thus far reveals no organisms; culture is pending Current antibiotics include Zosyn; cultures should be tailored based on pending culture results Continue current care as directed by the primary service Patient is to follow-up with Dr. Ledezma in clinic upon discharge to discuss potential hernia repair Admission and Anticipated Discharge Date Admission Date: June 09, 2023 Supervising Physician Co-Signing Physician Notes Patient discussed with Christ Mccarthy, agree with above. Postprocedure day #1 aspiration of the left groin seroma/possible abscess. No evidence of significant infection, continue antibiotics, follow-up with Dr. Carvalho as an outpatient for possible hernia repair. Surgery will sign off, call with ques tions or concerns Subjective Patient is currently resting in bed. He denies any pain/discomfort in his left groin. He denies any fevers, shakes, or chills. Physical Exam Constitutional: Left groin examined. There is no crepitus in the soft tissue. There is a Band- Aid covering patient's aspiration site. There is minimal pain with palpation. Results & Data Vital Signs (Past 12 Hours) Vital Signs Temp Pulse Pulse Resp BP Pulse Ox Pulse Ox 06/11/23 03:45 36.6 C 106 H 18 133/81 95 06/11/23 03:03 104 H 06/11/23 02:40 97 06/10/23 22:10 36.9 C 107 H 18 127/80 95 06/10/23 19:15 36.6 C 90 18 106/74 94 O2 Del Method O2 Del Method 06/11/23 03:45 Room Air 06/11/23 03:03 06/11/23 02:40 Room Air 06/10/23 22:10 Room Air 06/10/23 19:15 Room Air PG Care Time/CCT Total # of Minutes Spent Total Time Spent with Patient: Total time spent is greater than 50% in coordination of care (as documented) at patient's floor/unit and/or counseling patient: Coding Level of Care Code 30434 SUB INP/OBS CARE 06/02MIN Diagnoses Abscess of left groin L02.214
[2023-06-11 07:16] LABS: Basophils # (auto) 0.05 K/uL (0.00-0.20); Basophils % (auto) 0.8 %; Eosinophils # (auto) 0.11 K/uL (0.00-0.50); Eosinophils % (auto) 1.8 %; Immature Granulocytes # (auto) 0.09 K/uL (0.01-0.20); Immature Granulocytes % (auto) 1.5 %; Lymphocytes # (auto) 0.53 K/uL (1.20-3.40); Lymphocytes % (auto) 8.9 %; Mean Corpuscular Hemoglobin 30.3 pg (25.0-34.0); Mean Corpuscular Hgb Conc 33.3 g/dL (32.0-36.0); Mean Corpuscular Volume 90.9 fL (80.0-100.0); Mean Platelet Volume 8.2 fL (9.4-12.4); Monocytes # (auto) 0.66 K/uL (0.11-0.59); Monocytes % (auto) 11.1 %; Neutrophils # (auto) 4.53 K/uL (1.40-6.50); Neutrophils % (auto) 75.9 %; Platelet Count 353 K/uL (130-400); RDW Coefficient of Variation 12.9 % (11.5-14.5); RDW Standard Deviation 42.5 fL (36.4-46.3); Red Blood Count 3.63 M/uL (4.70-6.10); White Blood Count 5.97 K/ul (4.8-10.8)
[2023-06-11 07:31] LABS: Albumin Globulin Ratio 1.6 (0.9-2); Albumin Level 3.1 gm/dl (3.4-5.0); BUN Creatinine Ratio 24.1 (10-20); Bilirubin,Total 0.7 mg/dl (0.2-1.0); Calcium 8.1 mg/dl (8.6-10.3); Creatinine Clr Calc Pharmacy 114.6 ml/min; Est GFR (African American) 117.4 ml/min; Est GFR (Non-African American) 101.3 ml/min; Potassium 4.1 mmol/L (3.5-5.1); Total Protein 5.1 gm/dl (6.0-8.3)
[2023-06-11] MEDS: LACTATED RINGER'S 1,000 ML IV SCH ×2 (08:39→13:15)
--- NOTE | 2023-06-11 10:01 | Discharge Summary ---
Date of Service June 11, 2023 Admission HPI Per Admitting Provider Mal is a 78-year-old male with a history of A-fib on anticoagulation who presents with 1 month of left groin swelling and tenderness which has been unchanging in the last few days. CT shows fluid-filled left groin collection and associated left inguinal hernia. Patient has a history of colon resection and diverting ileostomy which was reversed in April, swelling started shortly after this. CTA/P: Large left inguinal hernia with large thick-walled peripherally enhancing fluid collection. Loops of bowel closely approximates this collection at the inguinal ring but this does not appear to represent incarcerated bowel and is not associated with an obstruction. Infected fluid collection/abscess favored neoplasm not excluded. Patient seen by general surgery. Suspect postop fluid collection potential a bscess. Recommend ultrasound-guided drainage with interventional radiology, will need eventual inguinal hernia repair however recommend drainage and antibiotic treatment prior to pursuing this Mal is seen at the bedside and collateral is collected from his son Schuyler by phone. Came in today due to groin swelling which began in April and is causing pain. Has had a chronic hernia in that area, but swelling increased 3 weeks ago and pain began to develop 3 weeks ago. Has been relatively constant until the past week/few days when it increased which prompted him to come into the ER In December he had a colon cancer rescection with ileostomy. Apr 22 had ileostomy reversed and was uncomplicated, but swelling did worsen shortly after that. Hernia preceded that and was known. Had delayed repair as was focusing on th emanagement of cancer. Surgeyr was performed at [facility] General cardiology. Was cardioverted once two years ago / Apr 2022 but afib recurred after a few months. Had associated leg swelling. No history of NC. Was on eliquis but had a GIB/rectal bleed which led to the dx of his colon cancer. Was recommended to discontinue anticoagulation. Is pending followup for potential ablation/cardioversion and will be seeing Dr. Geronimo to establish here in the next few months. No PCP in [facility] because that PCP stopped practicing and never transferred care. Appointment on Tuesday to establish with [facility] [employer]/Dr. Ramirez office. During ileostomy reversal did have some RVR and hypertension which was noted and he was started on cardizem. Shortly after developed leg edema again which had not been present for over a year and had stopped taking this a few days ago and noticed that the swelling completely resolved after this was stopped. Son thinks Mal may have been on metoprolol over a year ago with lasix but had some dizziness and a fall when this was combined wtih lasix and discontinued this cold turkey. Son lives in [place]. Mal moved to [facility] with his son temporarily. Only current prescription is cardizem which he is not taking. Takes no medications and prefers to avoid medications. Takes multiple vitamins and supplements Medical History: Reviewed Medications: Reviewed Surgical History: Reviewed Family history: Reviewed Allergies: Reviewed Social History: Denies tobacco/etoh use Code Status: Full Code Admission Exam Per Admitting Provider General: A&Ox3. NAD. Cooperative. HEENT: Atraumatic, normocephalic. Vision/hearing intact Pulm: CTAB A&P. -wheezes, -rales, -rhonchi. Symmetrical chest rise. No increased work of breathing. No respiratory distress. Cardiac: irir, regular rate, -mrg. Radial pulses intact and symmetrical. Abdominal: Nontender, nondistended, soft. BS present. : Left inguinal swelling, tenderness, and overlying erythema. Extremities: Warm, dry. No pitting edema Principal Diagnosis Groin abscess Discharge Exam Constitutional: well developed and well nourished Eyes: PERRL, conjunctivae normal, anicteric sclerae ENMT: hematoma on left baptism, bruising noted under left eye Neck: trachea midline, no thyromegaly Respiratory: normal respiratory effort, lungs clear to auscultation Cardiovascular: Rate/Rhythm: + irregularly irregular Gastrointestinal (Abdomen): Inspection/Auscultation: abdomen normal to inspection Percussion/Palpation: abdomen soft; abdomen nontender Skin: no rashes, warm and dry Genitourinary: No left groin swelling, minimally tender to palpation Discharge Data Allergies Allergy/AdvReac Type Severity Reaction Status Date / Time No Known Allergies Allergy Unverified 06/09/23 15:05 Consultations 06/09/23 13:58 Consult General Surgery Stat 06/09/23 16:04 ED Decision to Admit Stat Ordered Studies 06/09/23 12:28 CT abd pelvis IV con only Stat 06/10/23 07:46 IR punc asp abs/antelmo/bulla/cys Routine Hospital Course (1) Abscess of left groin: -CTAP on admission demonstrating fluid collection/abscess at L inguinal ring -IR drainage performed on 06/10, uncomplicated -Recovering well postoperatively, outpatient surgery f/u and also to discuss inguinal hernia repair -Zosyn given while in hospital, discharged on Augmentin 875 BID x2 days to complete 5 days of treatment -Gram stain culture and cytology pending at time of discharge (2) Chronic pancreatitis: Pancreatic ductal dilation suspected due to intraductal calculi. No evidence of obstructing mass noted on CT. No evidence of acute cholecystitis on CT however there is some nonspecific gallbladder wall thickening and edema suspect to be related to ascites and hepatocellular disease. No lipase elevation on admission -No abdominal pain during stay, no leukocytosis, normal labs (3) Left inguinal hernia: -Outpatient surgery f/u s/p abscess drainage (4) Afib: History of 1 cardioversion with subsequent return to AF after several months Was previously anticoagulated, stopped due to history of GI bleeding with colon cancer, colon cancer since resected 04/2023 -TTE demonstrating preserved EF, severe biatrial dilation, moderate-severe MR -Previously on metoprolol for rate control but discontinued due to lightheadedness, diltiazem discontinued due to peripheral edema -Restarted metoprolol tartrate on admission for rate-control, low dose 12.5 mg BID -Discharged on Lopressor 12.5 mg BID -Rate controlled in low 100s at time of discharge -Does have f/u with [facility] cardiology scheduled for 07/2023 -Pt does express wish to avoid medications/blood thinners if possible -Anticoagulation deferred on discharge until cardiology f/u Cardiology records pending from [facility] at time of discharge (he was seen at [facility] for cardiology, [facility] for his colon cancer) (5) History of colon cancer: Resected at [facility], no metastatic or residual disease and has not required chemoradiation. Ileostomy was reversed this past April 2023 (6) Cirrhosis of liver: CT A/P: The liver is cirrhotic in morphology and heterogeneous in attenuation. May require GI f/u in outpt for possible biopsy INR 1.1 on admission Total Time Total Time Spent Total Time Spent (In Minutes): <30 Discharge Plan Discharge Items Patient Disposition: Home - Self-Care Reason For Visit: INGUINAL ABSCESS, HX AFIB RVR Discharge Diagnosis: Inguinal abscess and hernia, afib Activity: Resume your previous activity Non-emergency contact: Primary Care Provider Call non-emergency contact if: you have any medication questions, your symptoms worsen, your pain is not controlled and your pain is unusual for you Follow-up/Referrals: Gelacio Ledezma MD [Physician] - PCP,NO [Primary Care Provider] - Diet: Regular Addtl Attending Provider Instructions: You were admitted to the hospital for a groin infection with abscess (a fluid collection). You were treated with surgical drainage to remove the fluid collection and antibiotics to eliminate the remaining bacteria. A discharge summary will be sent to your primary care physician to ensure continuity of care. Please bring this discharge summary with you to your next office appointment so that your provider can review it at that time. Follow-up appointments: - Make a follow-up appointment with your PCP within the next week. It is very important that you follow up with them shortly after discharge from the hospital. - We have requested a follow up with the surgeon as well. Medications: Your medication list has been reviewed and reconciled upon discharge to ensure accuracy and continuity of care. An updated list of all your medications is included with your hospital discharge paperwork. Please review this list closely, and make note of any changes. -We sent a new medication called Augmentin to the pharmacy. This is an antibiotic that will treat the remainder of your groin infection. Take a dose tonight with food. Then take Augmentin twice a day (with food) on Tuesday and Tuesday. -We restarted metoprolol tartrate (short-acting) for your atrial fibrillation, 12.5 mg twice a day. We are using short-acting, low-dose metoprolol because you have a history of previous side effects with metoprolol including lightheadedness. This may need to be increased in dose or switched to the long- acting metoprolol at some point by your lpc/PCP. Take your medications as instructed; do not skip a dose of your medicines. Make sure all of your doctors know every medicine you are taking (including jjpj-pjh-flnkenc medicines, vitamins, and supplements). Call your primary care provider before taking any new medicines (including wvfp-gem-suvgela medicines, vitamins, and supplements), because some of these may interact with your current medications, or may make your symptoms worse. Tell your primary care provider if you cannot afford your medications. CONTACT YOUR PRIMARY CARE PROVIDER if you experience any of the following: -Groin pain -Groin swelling -Fever -Chills -Difficulty following your treatment plan, or difficulty taking medications CALL 911 OR GO TO THE EMERGENCY DEPARTMENT if you experience any of the following: - Sudden, severe abdominal pain or nausea/vomiting - Severe chest pain, or chest pain that radiates (moves) to your jaw or arm - Sudden, severe shortness of breath or difficulty breathing Thank you for allowing us to participate in your care Pending Studies at Discharge: Yes Studies:: Gram stain cytology + culture Stand-Alone Forms: My [facility] Medications and DC Order Prescriptions: New metoprolol tartrate 25 mg Tablet 12.5 mg PO BID Qty: 30 2RF amoxicillin-pot clavulanate 875-125 mg tablet 1 tab PO BID Qty: 5 0RF Rx Instructions: Take one dose tonight with food, then 2x daily with food on Tuesday and Tuesday Discontinued diltiazem HCl 120 mg Tablet Extended Release 24 Hr 120 mg PO QAM Discharge Orders: Discharge Order (Routine); Ordered 06/11/23 Ordered By: Gavin Phan Admission Data Admit Date/Time: 06/09/23 17:18 Attending Provider: Philipp Lacy Admit Provider: Schuyler Mcgowan Primary Care Provider: PCP,NO Other Providers: Gelacio Ledezma; Schuyler Mcgowan Other Interventions: Discharge Summary Assessment (RN) Last Done: 06/11/23 13:09 Supervising Physician Co-Signing Physician Notes I personally examined the patient and verified all alvarado points of history and exam, discussed case, and agree with decision making with Dr Phan feels good wants to go home no significant pain PCP appt tuesday vitals noted nad heent nc at mmm breathing unlabored no accessory muscles good effort groin drain site c/d/i no erythema nontender inflamed seroma vs infection/abscess - WBC (+), no organisms on gram stain but also was done after abx, description of fluid more c/w seroma than abscess but also with pain - obligated to treat as infection -safe/stable for home PO augmentin multitude of comorbidities - appearing stable, has outpt care set up starting tuesday otherwise as above Resident Activity Tracking Resident Involvement: Resident Care Provided Care Provided: Adult Hospital Medicine
[2023-06-11] MEDS ORDERED: AMOXICILLIN/CLAVULANATE 875 MG TAB PO ONE (11:20)
[2023-06-11] MEDS: METOPROLOL TARTRATE 25 MG TAB PO SCH (11:25)
--- NOTE | 2023-06-11 15:37 | Billing Data ---
Date of Service June 11, 2023 Coding Level of Care Code 34600 IN/OBS DISCH 30 MIN/LESS
== END 2023-06-11 14:02 | disposition home or self-care (01) | DRG 603 ==
LOC: ED 11:41 → SUATTDRO 17:18 → 2S 17:18